=== PATIENT | female | born 1995 | race Caucasian/White ===

== ENCOUNTER 2017-03-23 06:17 | Emergency (ER) | payer MEDICAID ==
[~2017-03-23] VITALS: Ht 160 cm; Wt 74.8 kg
[2017-03-23 06:40] VITALS: Ht 160 cm; Wt 74.8 kg
[2017-03-23 09:55] VITALS: BP 122/68
== END 2017-03-23 09:55 | disposition home or self-care (01) ==
LOC: ED 06:17
DX: J03.90 Acute tonsillitis, unspecified (principal)